=== PATIENT | female | born 1950 | race Two or more races ===

== ENCOUNTER 2022-12-20 16:11 | Emergency (ER) | payer MEDICARE, OTHER ==
[~2022-12-20] VITALS: Ht 162.6 cm; Wt 78.5 kg
--- NOTE | 2022-12-20 16:25 | NUR ---
RECEIVEDP PT 72 YRS FEMALE FROM HOME S/P TRIP AND FELL C/O PAIN AND SWALLEN ON RT ELBOW . SWALLEN AND DIFORMITY
[2022-12-20] MEDS ORDERED: ACETAMINOPHEN ES 500 MG TABLET ONE (16:57)
[2022-12-20] MEDS ORDERED: NAPROXEN 250 MG TABLET ONE (16:57)
[2022-12-20] MEDS ORDERED: ACETAMINOPHEN ES 500 MG TABLET PO ONE (17:00)
[2022-12-20] MEDS ORDERED: NAPROXEN 250 MG TABLET PO ONE (17:00)
--- NOTE | 2022-12-20 17:15 | NUR ---
X- Ray done at bed side TOLORATED WILL
--- NOTE | 2022-12-20 18:10 | NUR ---
AWAITING DIPOSITION OF PATIENT BY .
--- NOTE | 2022-12-20 19:09 | NUR ---
SERA AT BED SIDE (NAOMY GONG
--- NOTE | 2022-12-20 19:20 | NUR ---
HAND OFF CATRINE RN
--- NOTE | 2022-12-20 19:43 | NUR ---
EMT AT BEDSIDE TO APPLY IMMOBILIZER
--- NOTE | 2022-12-20 19:55 | NUR ---
Patient discharged to home in stable condition. Written and verbal after care instructions given. Patient verbalizes understanding of instruction.
[2022-12-20 20:08] VITALS: BP 128/58
== END 2022-12-20 19:55 | disposition home or self-care (01) ==
LOC: ER 16:11
DX: S52.122A Displaced fracture of head of left radius, initial encounter for closed fracture (principal); M25.522 Pain in left elbow; I10 Essential (primary) hypertension; E11.9 Type 2 diabetes mellitus without complications; W01.0XXA Fall on same level from slipping, tripping and stumbling without subsequent striking against object, initial encounter; Y93.89 Activity, other specified; Y92.89 Other specified places as the place of occurrence of the external cause; Y99.8 Other external cause status
CPT/HCPCS: 73080-TC